=== PATIENT | male | born 1980 | race Two or more races ===

== ENCOUNTER 2019-02-06 17:39 | Inpatient (IN) | payer MEDICAID ==
[~2019-02-06] VITALS: Ht 165.1 cm; Wt 89.1 kg
--- NOTE | 2019-02-06 17:53 | NUR ---
CAME IN FOR RLQ ABD PAIN SINCE YESTERDAY, FEVER THIS MORNING. TEMP UPON ARRIVAL IN ED 99.4F, TO ER BED 8, HOOKED TO MONITOR, CHANGED TO HOSP GOWN, PROVIDED W WARM BLANKET, PATIENT AO x 4, BREATHING EVEN AND UNLABORED. AWAITING MD DIAZ.
--- NOTE | 2019-02-06 17:58 | NUR ---
DR KNAPP AT BEDSIDE
[2019-02-06 18:13] LABS: BASOPHILS # (AUTO) 0.1 /CMM (0.0-0.2); BASOPHILS % (AUTO) 0.4 % (0.0-2.0); EOSINOPHILS % (AUTO) 0.4 % (0.0-6.0); HEMATOCRIT 47 % (39-51); HEMOGLOBIN 15.6 g/dL (13.5-17.5); LYMPHOCYTES % (AUTO) 13.2 % (20.0-44.0); MEAN CORPUSCULAR HGB CONC 33 g/dl (31.0-36.0); MEAN CORPUSCULAR VOLUME 91 fL (80-96); MONOCYTES # (AUTO) 1.8 /CMM (0.1-1.30); MONOCYTES % (AUTO) 12.2 % (2.0-12.0); NEUTROPHILS % (AUTO) 73.8 % (43.0-81.0); PLATELET COUNT (AUTO) 242 /CMM (150-450); RED BLOOD CELL COUNT(AUTO) 5.14 MIL/uL (4.5-6.0); WHITE BLOOD COUNT (AUTO) 14.9 K/uL (4.3-11.0)
[2019-02-06] MEDS ORDERED: ONDANSETRON HCL/PF 4 MG/2 ML VIAL ONE (18:17)
[2019-02-06 18:20] LABS: CALCIUM, SERUM 8.5 mg/dL (8.5-10.1); CREATININE 0.9 mg/dL (0.6-1.3); POTASSIUM 3.6 mmol/L (3.5-5.1)
--- NOTE | 2019-02-06 18:20 | NUR ---
WHEELED OUT VIA RNEY FOR CT SCAN
[2019-02-06 18:26] LABS: ALBUMIN 3.7 g/dL (3.4-5.0); BILIRUBIN,DIRECT 0.3 mg/dL (0.0-0.2); BILIRUBIN,TOTAL 1.9 mg/dL (0.2-1.0); TOTAL PROTEIN, SERUM 7.4 g/dL (6.4-8.2)
[2019-02-06] MEDS ORDERED: IV NS 0.9% 500 ML BAG IV ONE (18:30)
[2019-02-06] MEDS ORDERED: ONDANSETRON HCL/PF 4 MG/2 ML VIAL IVP ONE (18:30)
--- NOTE | 2019-02-06 18:48 | NUR ---
CALLED DR NICHOLAS, LEFT VOICEMAIL
[2019-02-06] MEDS ORDERED: PIPERACILLIN /TAZOBACTAM 3.375 G in IV D5W 50 ML IV ONE (19:00)
--- NOTE | 2019-02-06 19:00 | NUR ---
PATIENT INFORMED HE NEEDS TO BE IN SURGERY. INSTRUCTED NPO. PATIENT VERBALIZED UNDERSTANDING.
[2019-02-06] MEDS ORDERED: PIPERACILLIN /TAZOBACTAM 3.375 G VIAL IV ONE (19:02)
--- NOTE | 2019-02-06 19:13 | NUR ---
CALLED DR NICHOLAS, LEFT VOICEMAIL.
[2019-02-06] MEDS ORDERED: HYDROCODONE/APAP 5/325MG 1 EACH TABLET PO PRN (19:30)
[2019-02-06] MEDS ORDERED: ACETAMINOPHEN 325 MG TABLET PO PRN (19:30)
[2019-02-06] MEDS ORDERED: ONDANSETRON HCL/PF 4 MG/2 ML VIAL IVP PRN (19:30)
[2019-02-06] MEDS ORDERED: Z GUARD REMEDY 2 OZ OINT TP PRN (19:30)
[2019-02-06] MEDS ORDERED: MAG HYDROX/AL HYDROX/SIMETH 30 ML UDC PO PRN (19:30)
[2019-02-06] MEDS ORDERED: ZOLPIDEM TARTRATE 5 MG TABLET PO PRN (19:30)
[2019-02-06] MEDS ORDERED: MAGNESIUM HYDROXIDE 30 ML UDC PO PRN (19:30)
--- NOTE | 2019-02-06 19:30 | NUR ---
REPORT GIVEN TO ED RN FOR PUSHPA
--- NOTE | 2019-02-06 19:31 | NUR ---
CALLED NURSING SUP FOR MEDSURG BED
--- NOTE | 2019-02-06 19:54 | NUR ---
DR NICHOLAS SPEAKING WITH DR KNAPP
[2019-02-06 20:00] VITALS: BP 107/69
--- NOTE | 2019-02-06 20:06 | NUR ---
311-1 [facility]
--- NOTE | 2019-02-06 20:06 | NUR ---
M/S 311-1
--- NOTE | 2019-02-06 20:23 | NUR ---
REPORT GIVEN TO LIONEL VANESSA
[2019-02-06 20:30] VITALS: BP 107/69
--- NOTE | 2019-02-06 20:30 | NUR ---
MS/RN ADMITTING NOTES: RECEIVED REPORT FROM OTF RODRIGUEZ FROM ER. PATIENT ARRIVED TO THE UNIT VIA GURNEY ACCOMPANIED BY ER STAFF, AND FRIEND, EVELIN AT BED SIDE. PATIENT IS ALERT ORIENTED X4, MALTESE SPEAKING, UNDERSTANDS VERY MINIMAL BERMUDIAN. VERBALLY RESPONSIVE AND ABLE TO MAKE NEEDS KNOWN. PATIENT IS IN A STABLE CONDITION, VITALS ISGNS WNL. ON ROOM AIR, NO SOB NOTED, NO S/S OF ACUTE DISTRESS NOTED. BREATHING EVEN AND UNLABORED. NO COMPLAINS OF PAIN OR DISCOMFORT THIS TIME. PATIENT IS ORIENTED TO THE UNIT AND STAFF. PLACED ON NPO DIET FOR POSSIBLE SURGERY TOMORROW. IV ACCESS IS ON THE RIGHT AC #18G, PATENT, INTACT AND FLUSHING WELL. NO S/S OF INFILTRATION OR REDNESS. ON ASPIRATION PRECATION. PLAN OF CARE EXPLAINED TO THE PATIENT AND TRANSLATED BY FRIEND AT BED SIDE. SKIN ASSESSMENT DONE, SKIN IS INTACT. BELONGINGS CHECK LIST DONE, MED RECON DONE, AWAITING FOR FURTHER ORDERS FROM DR. SIMS. PATIENT IS AMBULATORY BUT STATES HE IS IN PAIN WHEN HE WALKS. PATIENT IS CONTINENT AND USES URINAL. SAFETY MEASURES ARE INITIATED. BED IS IN LOW, LOCKED POSITION WITH SIDE RAILS UP 2X. ALL NURSING NEEDS MET AT THIS TIME. ALL CONCERNS ADRESSED AT THIS MOMENT, WILL CONTINUE MONITORING PT. ACCORDINGLY.
[2019-02-06] MEDS: MORPHINE SULFATE INJ 2 MG/ML DISP.SYRIN IV PRN (21:51)
--- NOTE | 2019-02-06 21:51 | NUR ---
MS/ RN NOTES: PATIENT COMPLAINED OF PAIN LOCATED IN THE RIGHT LOWER QUADRANT OF THE ABDOMEN. PAIN SCALE OF 8, ADMINISTERED MORPHINE 1MG IV PRN PER ORDER. PATIENT IS STABLE CONDITION, VITAL SIGNS WNL. WILL CONTINUE TO MONITOR PATIENT AND REASSESS PAIN LEVEL ACCORDINGLY.
[2019-02-06] MEDS: IV NS 0.9% 1,000 ML IV PRN (23:27)
--- NOTE | 2019-02-06 23:30 | NUR ---
MS/ RN NOTES: DR. NICHOLAS CALLED ABOUT LAPAROSCOPIC APPENDECTOMY AND POSSIBLE EXPLORATORY LAPAROTOMY SCHEDULED FOR 729. EXPLAINED TO THE PATIENT ABOUT PLAN OF CARE, GATHERED CONSENT AND WITNESSED PATIENT SIGN. CHECKLIST DONE. PATIENT FRIEND, ETELVINA SPOKE WITH DR. NICHOLAS. NO FURTHER QUESTIONS AT THIS MOMENT.
[2019-02-07] MEDS ORDERED: PIPERACILLIN /TAZOBACTAM 3.375 G VIAL IV ONE (00:26)
[2019-02-07] MEDS ORDERED: PIPERACILLIN /TAZOBACTAM 3.375 G in IV D5W 50 ML IV ONE (01:00)
[2019-02-07 03:12] LABS: APPEARANCE,URINE CLEAR (CLEAR); BILIRUBIN,URINE NEGATIVE (NEGATIVE); BLOOD, URINE NEGATIVE Ery/uL (NEGATIVE); COLOR,URINE YELLOW (YELLOW); KETONES,URINE NEGATIVE (NEGATIVE); LEUKOCYTE ESTERASE ,URINE NEGATIVE (NEGATIVE); NITRITE, URINE NEGATIVE (NEGATIVE); PROTEIN,URINE NEGATIVE (NEGATIVE); UGLUCOSE NEGATIVE (NEGATIVE); UROBILINOGEN,URINE 0.2 EU/dL (0.2)
[2019-02-07 05:43] LABS: BASOPHILS # (AUTO) 0.1 /CMM (0.0-0.2); BASOPHILS % (AUTO) 0.5 % (0.0-2.0); EOSINOPHILS % (AUTO) 0.1 % (0.0-6.0); HEMATOCRIT 46 % (39-51); LYMPHOCYTES # (AUTO) 1.6 /CMM (0.8-4.8); LYMPHOCYTES % (AUTO) 10.2 % (20.0-44.0); MEAN CORPUSCULAR HGB CONC 33 g/dl (31.0-36.0); MEAN CORPUSCULAR VOLUME 91 fL (80-96); MONOCYTES # (AUTO) 1.3 /CMM (0.1-1.30); MONOCYTES % (AUTO) 8.7 % (2.0-12.0); NEUTROPHILS # (AUTO) 12.4 /CMM (1.8-8.9); NEUTROPHILS % (AUTO) 80.5 % (43.0-81.0); PLATELET COUNT (AUTO) 232 /CMM (150-450); RED BLOOD CELL COUNT(AUTO) 5.03 MIL/uL (4.5-6.0); WHITE BLOOD COUNT (AUTO) 15.4 K/uL (4.3-11.0)
[2019-02-07 06:30] VITALS: BP 111/67
[2019-02-07 06:41] LABS: CALCIUM, SERUM 8.1 mg/dL (8.5-10.1); CREATININE 0.8 mg/dL (0.6-1.3); MAGNESIUM 2.2 mg/dL (1.8-2.4); PHOSPHORUS 2.7 mg/dL (2.5-4.9); POTASSIUM 3.6 mmol/L (3.5-5.1)
[2019-02-07] MEDS ORDERED: MIDAZOLAM HCL 2 MG/2ML VIAL ONE (06:45)
[2019-02-07 06:46] LABS: THYROID STIMULATING HORMONE 0.766 uIU/mL (0.358-3.74)
[2019-02-07] MEDS ORDERED: FENTANYL PF 250MCG/5ML AMPUL ONE (06:46)
[2019-02-07] MEDS ORDERED: FAMOTIDINE/PF INJ 20 MG/2 ML VIAL IV ONE (06:46)
[2019-02-07] MEDS ORDERED: ROCURONIUM BROMIDE 50 MG/5 ML ONE (06:46)
--- NOTE | 2019-02-07 06:46 | NUR ---
MS/RN CLOSING NOTES: PATIENT IS STABLE IN BED WITH FRIEND AT THE BEDSIDE. WAITING FOR SURGERY AT 0730. VERBALLY RESPONSIVE AND ABLE TO MAKE NEEDS KNOWN. VITALS SIGNS WNL. ON ROOM AIR, NO SOB NOTED, NO S/S OF ACUTE DISTRESS NOTED. BREATHING EVEN AND UNLABORED. NO COMPLAINS OF PAIN OR DISCOMFORT THIS TIME. IV ACCESS IS ON THE RIGHT AC #18G, PATENT, INTACT AND FLUSHING WELL. NO S/S OF INFILTRATION OR REDNESS. ON ASPIRATION PRECAUTION. PLAN OF CARE EXPLAINED TO THE PATIENT AND TRANSLATED BY FRIEND AT BED SIDE. ALL DUE MEDS GIVEN ORDERED. KEPT NPO THROUGH THE NIGHT ORDERED. SAFETY MEASURES KEPT IN PLACE, BED IS IN LOW, LOCKED POSITION WITH SIDE RAILS UP 2X. ALL NURSING NEEDS MET AT THIS TIME. ALL CONCERNS ADDRESSED AT THIS MOMENT, WILL ENDORSE TO DAY SHIFT NURSE FOR PUSHPA.
[2019-02-07] MEDS ORDERED: BUPIVACAINE MPF 0.5% W/EPI INJ 30 ML VIAL ONE (06:52)
[2019-02-07] MEDS ORDERED: ANESTHESIA TRAY IN PYXIS 1 EA TRAY MC ONE (06:52)
[2019-02-07] MEDS ORDERED: LIDOCAINE HCL/PF 1% 30 ML SDV ONE (06:52)
--- NOTE | 2019-02-07 07:00 | NUR ---
MS/ RN CLOSING NOTES: PATIENT WAS PICKED UP BY OR NURSE FOR SURGERY VIA BED, PATIENT LEFT IN STABLE CONDITION.
--- NOTE | 2019-02-07 07:33 | NUR ---
MS/RN Opening note Patient left for OR at 0700 via [facility]. Will receive report for second shift supervisor RN. Will continue with PUSHPA.
[2019-02-07 08:00] VITALS: BP 111/69
[2019-02-07] MEDS ORDERED: PIPERACILLIN /TAZOBACTAM 3.375 G in IV D5W 50 ML IV SCH (08:00)
--- NOTE | 2019-02-07 10:00 | NUR ---
MS/RN back from OR Received patient from OR accompanied by Stuart VANESSA. Patient is stable, 109/63 80 18 99.1 98% RA. IV line is clean and patent. Will follow through with post-op orders. Will continue to monitor
[2019-02-07] MEDS ORDERED: HYDROCODONE/APAP 10/325MG 1 EA TABLET PO PRN (10:30)
[2019-02-07] MEDS ORDERED: ONDANSETRON HCL/PF 4 MG/2 ML VIAL IV PRN (10:30)
[2019-02-07] MEDS: PIPERACILLIN /TAZOBACTAM 3.375 G in IV D5W 100 ML IV SCH ×3 (10:31→23:22)
[2019-02-07] MEDS: PANTOPRAZOLE 40 MG VIAL IV SCH (10:31)
[2019-02-07] MEDS ORDERED: HYDROMORPHONE 1 MG/1 ML DISP.SYRIN IV PRN (11:00)
[2019-02-07 11:20] LABS: POTASSIUM 3.5 mmol/L (3.5-5.1)
--- NOTE | 2019-02-07 12:00 | NUR ---
MS/RN note Patient is stable, showing no signs of acute distress, no C/O of pain, VS WNL. Tolerating clear liquid diet well, able to sit in the side of bed.
[2019-02-07 16:00] VITALS: BP 115/74
--- NOTE | 2019-02-07 18:15 | NUR ---
MS/RN Closing note Patient is resting in bed, A/O x4, showing no signs of acute distress or SOB, saturating >95% on RA. Patient is s/p lap appendectomy, 4 small abdominal incisions noted covered with surgical dressing, clean, so signs of bleeding. IV line is clean and patent running NS at 75ml/hour. Skin is intact. All due meds given, all patient needs met. Safety and fall precautions enforced. Call light is within reach and patient is aware of how to call for assistance when needed. Will endorse to shift foreman.
[2019-02-07 20:25] VITALS: BP 113/67
[2019-02-07 20:31] VITALS: BP 113/67
[2019-02-07] MEDS: MORPHINE SULFATE INJ 2 MG/ML DISP.SYRIN IV PRN (22:27)
--- NOTE | 2019-02-07 22:28 | NUR ---
MS/RN NOTE: C/O PAIN RIGHT ARM. MORPHINE 1 MG IV GIVEN
[2019-02-08] MEDS: IV NS 0.9% 1,000 ML IV PRN (01:12)
[2019-02-08 06:47] LABS: BASOPHILS % (AUTO) 0.2 % (0.0-2.0); HEMATOCRIT 43 % (39-51); HEMOGLOBIN 14.2 g/dL (13.5-17.5); LYMPHOCYTES # (AUTO) 2.1 /CMM (0.8-4.8); LYMPHOCYTES % (AUTO) 15.1 % (20.0-44.0); MEAN CORPUSCULAR HGB CONC 33 g/dl (31.0-36.0); MEAN CORPUSCULAR VOLUME 92 fL (80-96); MONOCYTES # (AUTO) 1.6 /CMM (0.1-1.30); MONOCYTES % (AUTO) 11.4 % (2.0-12.0); NEUTROPHILS # (AUTO) 10.1 /CMM (1.8-8.9); NEUTROPHILS % (AUTO) 73.3 % (43.0-81.0); PLATELET COUNT (AUTO) 216 /CMM (150-450); RED BLOOD CELL COUNT(AUTO) 4.67 MIL/uL (4.5-6.0); WHITE BLOOD COUNT (AUTO) 13.9 K/uL (4.3-11.0)
[2019-02-08 07:02] LABS: CALCIUM, SERUM 8.3 mg/dL (8.5-10.1); CREATININE 0.7 mg/dL (0.6-1.3); POTASSIUM 3.6 mmol/L (3.5-5.1)
[2019-02-08 08:00] VITALS: BP 107/63
--- NOTE | 2019-02-08 08:00 | NUR ---
RN NOTES RECEIVED PATIENT IN THE ROOM A/O X3 MALAY SPEAKER. PATIENT HAS NO ACUTE RESPIRATORY DISTRESS. V/S STABLE. PATIENT REFUSED PAIN AT THIS TIMER. INFUSING ZOSYN 25 ML/HR ON LEFT HAND INTACT, PATIENT AMBULATORY HAVE BOWEL MOVEMENT X1,PASSING GAS. SEEN PATIENT BY HOSPITALIST Dr LOPEZ, AND SURGEON DR NICHOLAS. PATIENT WILL DISCHARGE HOME. CALL LIGHT WITHIN TO REACH. SAFETY PRECAUTION MAINTAINED ALL THE TIME.
[2019-02-08] MEDS: PIPERACILLIN /TAZOBACTAM 3.375 G in IV D5W 100 ML IV SCH (10:01)
[2019-02-08] MEDS: PANTOPRAZOLE 40 MG VIAL IV SCH (10:02)
--- NOTE | 2019-02-08 12:00 | NUR ---
EN NOTES PATIENT TOLERATED REGULAR FOOD WELL, NO COMPACTING OF PAIN. ENCOURAGED TO AMBULATE. CALL LIGHT WITHIN TO REACH. CONTINUED MONITORING.
[2019-02-08 16:00] VITALS: BP 107/75
--- NOTE | 2019-02-08 16:47 | NUR ---
magazine journalist notes Patient discharge at this time going home. Patient stable v/s wnl, refused pain. Med reconciliation and discharge order reviewed and explained to patient. patient verbalized understanding, sign paperwork, picture taken. patient will follow surgeon Dr King in one week. all paperwork given to the patient. belonging with the patient. escorted patient to the lobby for safety. patient pick and shovel worker by friend name Julio phone # [phone].
== END 2019-02-08 17:00 | disposition home or self-care (01) | DRG 234 ==
LOC: ER 17:46 → MED 20:12
PROVIDERS: ADMIT Registered Nurse; ATTEND Family Medicine
PROC: 0DTJ4ZZ Resection of Appendix, Percutaneous Endoscopic Approach (ICD-10-PCS; principal; 2019-02-07)
DX: K35.80 Unspecified acute appendicitis (principal); D72.829 Elevated white blood cell count, unspecified; E66.9 Obesity, unspecified; Z68.32 Body mass index [BMI] 32.0-32.9, adult; E80.6 Other disorders of bilirubin metabolism
CPT/HCPCS: 36415; 80048-TC; 80051-TC; 80061-TC; 80076-TC; 81000-TC; 83690-TC; 83735-TC; 84100-TC; 84443-TC; 85025-TC; 85610-TC; 85730-TC; 86850-TC; 87081-TC; 88304-TC; C9113; G0378; J0690; J1100; J1885; J2250; J2270; J2405; J2543; J2704; J2710; J2765; J3010; J3490; J7030; J7040; J7060